=== PATIENT | female | born 1965 | race Native Hawaiian/Other Pacific Islander ===

== ENCOUNTER 2017-11-21 01:30 | Emergency (ER) | payer OTHER ==
[~2017-11-21] VITALS: Ht 160 cm; Wt 69.4 kg
[2017-11-21 02:21] LABS: PLATELET COUNT 299 K/uL (152-353)
[2017-11-21 02:34] LABS: POTASSIUM 3.9 mmol/L (3.6-5.2)
== END 2017-11-21 03:19 | disposition home or self-care (01) ==
LOC: ED 01:30
DX: F10.10 Alcohol abuse, uncomplicated (principal); F12.10 Cannabis abuse, uncomplicated
CPT/HCPCS: 80053; 80307; 80320; 81000; 85027; 99283

== ENCOUNTER 2018-07-15 10:52 | Emergency (ER) | payer OTHER ==
[~2018-07-15] VITALS: Ht 160 cm; Wt 63.5 kg
[2018-07-15] MEDS ORDERED: ASPIR-8181 MG PO (11:09)
[2018-07-15 11:22] LABS: PLATELET COUNT 277 K/uL (152-353)
[2018-07-15 11:30] LABS: POTASSIUM 3.6 mmol/L (3.6-5.2)
[2018-07-15 14:49] VITALS: BP 148/76; TEMP 97.6
== END 2018-07-15 14:50 | disposition home or self-care (01) ==
LOC: ED 10:52
DX: R10.9 Unspecified abdominal pain (principal); K44.9 Diaphragmatic hernia without obstruction or gangrene
CPT/HCPCS: 36415; 80053; 82150; 83690; 85027; 99283; J2405

== ENCOUNTER 2021-03-03 10:50 | Emergency (ER) | payer OTHER ==
[~2021-03-03] VITALS: Ht 160 cm; Wt 59.9 kg
[~2021-03-03 10:50] MED LIST: ASPIR-8181 MG PO
[2021-03-03 10:59] VITALS: TEMP 97
[2021-03-03 11:40] VITALS: BP 168/88
== END 2021-03-03 11:40 | disposition home or self-care (01) ==
LOC: ED 10:50
DX: S83.8X1A Sprain of other specified parts of right knee, initial encounter (principal); S80.211A Abrasion, right knee, initial encounter; W18.39XA Other fall on same level, initial encounter; Y92.098 Other place in other non-institutional residence as the place of occurrence of the external cause
CPT/HCPCS: 99282